=== PATIENT | female | born 1955 | race Caucasian/White ===

== ENCOUNTER 2016-08-14 05:55 | Inpatient (IN) | payer MEDICARE, OTHER ==
--- OUTSIDE RECORDS SUMMARY | 2016-08-14 05:59 | XMS REPORT | Continuity of Care Document ---
:1955 Author Organization [facility] ([facility]) Address [address] [place] [address] Phone [phone] Care Team Providers Name Role Phone Jalen Fiore Primary Care Provider [phone] Source Comments This disclosure is being made pursuant to the Care Everywhere program, applicable federal and state laws, and may not contain all informaitonavailable regarding this patient.[facility] ([facility]) Active Allergies and Adverse Reactions Allergen Noted Date Severity Reactions Comments No Known Allergies 10/20/2008 Current Medications Prescription Sig. Disp. Refills Start Date End Date Status FLUoxetine (PROZAC) take 20 mg by mouth Active 20 mg capsule daily. risperidone take 1 mg by mouth 2 Active (RISPERDAL) 1 mg times daily. tablet warfarin (COUMADIN) 4 Take 6 mg by mouth Active mg tablet daily. furosemide (LASIX) 40 take 20 mg by mouth Active mg tablet daily. estrogens, conjugated take 0.3 mg by mouth Active (PREMARIN) 0.3 mg daily. tablet diltiazem (CARDIZEM take 180 mg by mouth Active CD) 180 mg ER capsule daily. buPROPion (WELLBUTRIN take 150 mg by mouth Active XL) 150 mg extended daily. release tablet pioglitazone (ACTOS) Take 15 mg by mouth Active 15 mg tablet daily. gabapentin 300 mg Take 300 mg by mouth 3 Active tablet times daily. potassium chloride Take 20 mEq by mouth 2 Active (KLOR-CON) 20 mEq times daily. packet isosorbide Take 30 mg by mouth Active mononitrate (IMDUR) Every morning. 30 mg CR tablet insulin glargine inject subcutaneously Active (LANTUS) 100 unit/mL at bedtime. cartridge travoprost (TRAVATAN 1 Drop daily. Active Z) 0.004 % ophthalmic solution digoxin 250 mcg Take 250 mcg by mouth Active tablet daily. donepezil 5 mg tablet Take 5 mg by mouth at Active bedtime. polyethylene glycol Take 17 g by mouth Active 3350 (MIRALAX) 17 daily as needed. gram packet magnesium hydroxide Take 30 mL by mouth Active (MILK OF MAGNESIA) 80 daily as needed. mg/mL suspension sitaGLIPtin (JANUVIA) Take 100 mg by mouth Active 100 mg tablet daily. EXENATIDE (BYETTA SC) inject subcutaneously. Active glimepiride 4 mg Take 4 mg by mouth Active tablet Every morning. brimonidine 0.15 % 1 Drop 3 times daily. Active ophthalmic solution lisinopril 10 mg Take 10 mg by mouth Active tablet daily. HYDROCODONE Take by mouth. Active BIT/ACETAMINOPHEN (LORTAB PO) Active Problems Not on file Social History Tobacco Use Types Packs/Day Years Used Date Former Smoker Smokeless Tobacco: Never Used Last Filed Vital Signs Vital Sign Reading Time Taken Blood Pressure 120/70 04/09/2012 2:26 PM CDT Pulse 72 04/09/2012 2:26 PM CDT Temperature 36.6 C (97.9 F) 09/10/2009 9:29 AM CDT Respiratory Rate 16 04/09/2012 2:26 PM CDT Height 1.6 m (5' 3") 04/09/2012 2:26 PM CDT Weight 95.255 kg (210 lb) 04/09/2012 2:26 PM CDT Body Mass Index 37.21 04/09/2012 2:26 PM CDT Oxygen Saturation - - Plan of Care Health Maintenance Due Date Last Done Comments HCV Screening 1955 Hepatitis B Vaccine (1 of 3 - Primary Series) 1955 Tdap Vaccine 01/07/1964 Lipid Disorder Screening 1971 Td Vaccine 1971 Cervical Cancer Screening 1983 Mammogram 1993 Colonoscopy 2003 Zoster Vaccine 2013 HCC Annual Coding Paraplegia 06/25/2015 Influenza Vaccine: Seasonal (#1) 01/24/2016 Results from Last 3 Months Not on file
[2016-08-14] MEDS ORDERED: MORPHINE SULFATE 30 MG TABLET.SA PO PRN (06:00)
[2016-08-14] MEDS ORDERED: ROPIVACAINE HCL/PF 100 MG, KETOROLAC TROMETHAMINE 30 MG, EPINEPHrine 0.2 MG in NORMAL S... IJ PRN (06:00)
[2016-08-14] MEDS ORDERED: RINGERS SOLUTION,LACTATED 1,000 ML IV PRN (06:00)
[2016-08-14] MEDS ORDERED: TRANEXAMIC ACID 1,000 MG in NORMAL SALINE 100 ML IV PRN (06:00)
[2016-08-14] MEDS ORDERED: ceFAZolin SODIUM 1 GM VIAL IV PRN (06:00)
[2016-08-14 06:26] LABS: Prothrombin Time (Patient) 11.4 Seconds (9.4-11.4)
[2016-08-14 06:27] LABS: INR 1.1 INR (0.90-1.10)
[2016-08-14] MEDS ORDERED: RINGERS SOLUTION,LACTATED 1,000 ML IV ONE (09:32)
[2016-08-14] MEDS ORDERED: diphenhydrAMINE HCL 50 MG/ML VIAL IV PRN (10:08)
[2016-08-14] MEDS ORDERED: MAGNESIUM HYDROXIDE 30 ML UDC PO PRN (10:08)
[2016-08-14] MEDS ORDERED: MAG HYDROX/ALUMINUM HYD/SIMETH 30 ML UDC PO PRN (10:08)
[2016-08-14] MEDS ORDERED: HYDROmorphone HCL 1 MG/ML DISP.SYRIN IV PRN (10:08)
[2016-08-14] MEDS ORDERED: ONDANSETRON HCL/PF 2 MG/ML VIAL IV PRN (10:08)
[2016-08-14] MEDS ORDERED: ACETAMINOPHEN 500 MG TABLET PO PRN (10:08)
[2016-08-14] MEDS ORDERED: ZOLPIDEM TARTRATE 5 MG TABLET PO PRN (10:08)
[2016-08-14] MEDS ORDERED: PROMETHAZINE HCL 5 MG in DEXTROSE 5 % IN WATER 50 ML IV PRN ×2 (10:08)
[2016-08-14] MEDS ORDERED: HYDROPHILIC OINTMENT 454 APPL JAR TP PRN (10:11)
--- NOTE | 2016-08-14 10:16 | OR ---
Operative Report - Dictated Report Narrative: Date: 08/14/2016 Preoperative diagnosis: Right Knee degenerative joint disease. Postoperative diagnosis: Right Knee degenerative joint disease. Procedure: Right Total knee arthroplasty. Surgeon: Marco A Haji M.D. Sheet Pile Driver Operator: Dami Shultz PA-C Anesthesia: Spinal with regional block and local periarticular joint injection. Complications: None Specimens: Bone for disposal. Estimated blood loss: Minimal. Tourniquet time: 102 Minutes at 350 millimeters of mercury. Retained implants: Depuy Attune size 4 standard right lugged cemented posterior stabilized femoral component. Size 4 fixed-bearing cemented tibial platform. 4 by 6 millimeter posterior stabilized cross-linked tibial insert. 35 millimeter medialized patella button. Indications: Mrs. Martines is a 61-year-old female who has had long-standing knee pain. This patient was followed in my clinic for period of time with significant complaints of right knee pain consistent with arthritic changes. They had failed conservative measures including, but not limited to, activity modification, passage of time, medications, and other conservative measures. Patient wished to proceed with surgical treatment. The risks, benefits, and alternatives were discussed in clinic. The risks of , blood clots, bleeding, infection, nerve/tendon blood vessel/ injury, malposition of components, intraoperative fracture, postoperative limited range of motion, persistent pain, failure of components, and need for additional procedures. Patient wished to proceed consent was obtained after answering all questions. Procedure: After marking the correct extremity on the floor, the patient was taken to the operating room. A timeout was performed. IV antibiotics consisting of Ancef were administered prior to the procedure. A regional followed by spinal anesthetic was induced by anesthesia on the operative table with all bony prominences well-padded. Dumont catheter was placed, and a bump was placed under the operative side buttock. SCDs and CARMENCITA hose were utilized on the nonoperative leg. A well-padded tourniquet was applied to the operative thigh. The operative leg was then pre-scrubbed with shawn rai prepped, and draped in a standard sterile fashion. After exsanguinating the extremity with an Esmarch bandage, the tourniquet was inflated. After marking out the anterior knee for standard incision centered over the patella, the skin was incised and dissected down to the joint retinaculum. The joint retinaculum was marked out as well as the horizontal axis of the patella, and a standard medial parapatellar arthrotomy was then made. The most proximal aspect of the quadriceps tendon and the patella tendon insertion were protected from release. A partial synovectomy was performed as well as a resection of the infrapatellar fat pad. The distal femoral fat pad proximal to the trochlea was also resected using cautery. The soft tissues were elevated off the medial aspect of the proximal tibia using a Bundy elevator ensuring that we did not transect the medial collateral ligament. Upon initial evaluation range of motion was approximately 10 degrees to 100 degrees of flexion. There were signs of advanced arthrosis in the medial, lateral, and patellofemoral joint spaces. There were large marginal osteophytes which were removed with a rongeur. The knee was hyperflexed and the patella was tucked laterally. Protecting the surrounding soft tissues with Homans, an entry drill was placed down the femoral canal using Whitesides line for guidance into the entry point. The intramedullary femoral alignment rylee was utilized in order to cut the distal femur in 5 degrees of valgus resecting 10 millimeters of bone. Next the distal femur was sized to a size 4. A posterior referencing guide was utilized to place the distal femoral cutting block in 3 degrees of external rotation. This was pinned into place. The rotation was confirmed both visually and based on anatomic landmarks. The 4 in 1 cutting jig of the appropriate size was utilized in order to make all bony cuts. The angle wing was used to ensure no notching. Retractors were utilized in order to protect surrounding soft tissues. This cut did not result in any excessive notching. We then cut the box centered over the distal femur. This allowed for resection of the anterior and posterior cruciate ligaments. I then turned my attention to the preparation of the tibia. Using an extra medullary tibial alignment rylee, 6 millimeters of bone was resected off the medial articular surface. This was made perpendicular to the mechanical axis of the joint with the alignment rylee centered over the ankle mortise. The alignment rylee was checked and was noted to be parallel to the mechanical axis, centered over the medial one third of the tibial tubercle, paralleling the anterior surface of the tibia. We then turned our attention to the remaining meniscus and soft tissues. These were removed while protecting the surrounding ligaments and soft tissues. The marginal osteophytes off the anterior, posterior, medial, lateral aspects of the femur and tibia were removed. The tibia was sized out to a size 4. Next the tibia was drilled and punched in an externally rotated position. Next the trial femur and a series of tibial inserts were utilized in order to allow for full extension and maximal flexion. It was found that a 6 millimeter insert gave the best range of motion and stability at multiple flexion points as well as at full extension there was less than 2 mm of gapping both medially and laterally. There is minimal anterior translation with the knee at 90 degrees of flexion and no signs of being able to dislocate the knee. The patella was then prepared. The initial thickness was 21 millimeters. This was reamed down to 13 millimeters parallel to the anterior surface of the patella. It was sized out to a size 35 medialized patella button. This was then drilled and trialed. Without any medial restraint the patella tracked appropriately and did not sublux or dislocate. At this point, it was felt these were the appropriate sized implants, and all trials were removed. The standard periarticular joint injection consisting of ropivacaine, Toradol, and epinephrine were injected into the periarticular joint tissues. The bony surfaces were thoroughly irrigated with a pulsatile- suction saline irrigation device. A bone plug from the prior resected anterior chamfer cut was placed into the drill hole at the distal femur. The bony surfaces were then dried in preparation for placement of the implants. The cement was vacuum mixed per the chlorine plant operator's instructions. The cement was placed on the dry bony surfaces and posterior aspect of the implants. The implants were impacted into place, removing all extruded cement. At this point anesthesia administered tranexamic acid per protocol intravenously. The knee was placed in extension with axial loading with the trial insert while the cement cured. Once the cement cured, all remaining extruded cement was removed. The knee was placed through a range of motion with the trial insert to ensure appropriate range of motion and stability. Final range of motion was approximately 0 to 110 degrees. The knee was again thoroughly irrigated with pulsatile saline lavage. The final polyethylene insert was then impacted into place ensuring no retained soft tissues. The remaining periarticular joint injection was injected. A medium Hemovac drain was placed exiting superior laterally. The knee was then placed over a triangle and the arthrotomy was closed with interrupted #1 Vicryl after thoroughly irrigating the joint. The deep and subcutaneous tissues were closed with interrupted oh and 3-0 Vicryl respectively. Skin was closed with a running subcutaneous 3-0 Monocryl and david. Xeroform, 4 x 4's, ABD, Sof-Rol, and a full leg Nicholas wrap were applied. All sponge, needle, blade, and instrument counts were correct prior to closing the wounds. Postoperative condition: The patient was awoken and transferred to the postanesthesia care unit in stable condition. Plan is to be admitted to the inpatient medical/surgical floor postoperatively for 24 hours of IV antibiotics , physical therapy, occupational therapy, and medical comanagement. Patient will be weightbearing as tolerated with range of motion as tolerated. DVT prophylaxis will be with SCDs, CARMENCITA hose, and pharmacological anticoagulation. Anticipated hospital stay is approximately 2-4 days.
[2016-08-14] MEDS: ceFAZolin SODIUM 1 GM in DEXTROSE 5 % IN WATER 100 ML IV SCH ×6 (11:14→23:45)
[2016-08-14] MEDS: KETOROLAC TROMETHAMINE 15 MG/ML VIAL IV SCH ×3 (11:14→23:45)
[2016-08-14] MEDS: RINGERS SOLUTION,LACTATED 1,000 ML IV PRN ×2 (15:12→23:40)
[2016-08-14] MEDS ORDERED: WARFARIN SODIUM 5 MG TABLET PO SCH (17:00)
[2016-08-14] MEDS: oxyCODONE HCL/ACETAMINOPHEN 1 TAB TABLET PO PRN (17:38)
[2016-08-14] MEDS: MORPHINE SULFATE 15 MG TABLET.SA PO SCH (21:08)
[2016-08-14] MEDS: FAMOTIDINE 20 MG TABLET PO SCH (21:08)
[2016-08-14] MEDS: SIMVASTATIN 10 MG TABLET PO SCH (21:08)
[2016-08-14] MEDS: SENNOSIDES/DOCUSATE SODIUM 1 TAB TABLET PO SCH (21:08)
[2016-08-15] MEDS: KETOROLAC TROMETHAMINE 15 MG/ML VIAL IV SCH ×4 (04:38→22:18)
[2016-08-15 06:45] LABS: Hematocrit 31.9 % (37.0-47.0); Mean Cell Volume 87.4 fl (78-100); Mean Corpuscular Hemoglobin 27.4 pg (27-31); Mean Corpuscular Hgb Conc 31.3 g/dl (32-36); Mean Platelet Volume 11.3 fl (6.0-9.5); Platelet Count 145 K/mm3 (150-450); Red Blood Count 3.65 M/mm3 (4.2-5.4); Red Cell Distribution Width 14.7 % (11.5-14.0); White Blood Count 9.1 K/mm3 (4.0-10.5)
[2016-08-15 06:53] LABS: Prothrombin Time (Patient) 11.4 Seconds (9.4-11.4)
[2016-08-15 06:54] LABS: INR 1.1 INR (0.90-1.10)
[2016-08-15 07:00] LABS: Anion Gap 13.7 mmol/L (6.8-13.8); BUN/Creatinine Ratio 20.6 (9.0-21.6); Calcium * 8.7 mg/dL (7.9-10.9); Carbon Dioxide 21.9 mmol/L (24-32.6); Estimated Creat Clear 36.4; Potassium 4.6 mmol/L (3.4-4.6)
--- NOTE | 2016-08-15 08:08 | PN ---
Subjective - Date and Time Seen Date: 08/15/16 Time: 08:04 Subjective Narrative: Patient reports she feels good. Feels she did well getting up to the chair for breakfast. Pain controlled. No nausea. No lightheadedness. NO SOB or CP. Objective Objective Narrative: Up in chair. Bandages C/D/I. N/V intact RLE. Calves supple. 5/5 PF/DF ankles. - Vitals Vitals: Last Vital Signs Temp 36.4 C L 08/15/16 06:36 Pulse 82 08/15/16 06:36 Resp 18 08/15/16 06:36 BP 131/72 08/15/16 06:36 Pulse Ox 100 08/15/16 06:36 - Abnormal Lab Findings Abnormal Lab Findings: Abnormal Lab Results 08/15/16 08/15/16 Range/Units 06:37 06:37 RBC 3.65 L (4.2-5.4) M/mm3 Hgb 10.0 L (12.5-16.0) gm/dL Hct 31.9 L (37.0-47.0) % MCHC 31.3 L (32-36) g/dl RDW 14.7 H (11.5-14.0) % Plt Count 145 L (150-450) K/mm3 MPV 11.3 H (6.0-9.5) fl Carbon Dioxide 21.9 L (24-32.6) mmol/L BUN 27 H D (3-23) mg/dL Est GFR (Non-Af Amer) 44 L D (60-130) mL/min Random Glucose 144 H (70-110) mg/dL Cauti Physician Documentation - Urinary Catheter Management Wilson Date of Insertion: 08/14/16 Time of Insertion: 08:10 Assessment/Plan - Problems/Diagnosis (1) Acute blood loss anemia Problem: Acute Narrative: asymptmoatic recheck labs tomorrow am (2) Diabetes Problem: Acute (3) Hypertension Problem: Acute (4) Hyperlipidemia Problem: Acute (5) Atrial fibrillation Problem: Acute (6) History of DVT (deep vein thrombosis) Problem: Acute Narrative: anticoagulation (7) Total knee replacement status Problem: Acute Narrative: PT, wilson and drain out today, anticoagulation, pain control
[2016-08-15] MEDS: MORPHINE SULFATE 15 MG TABLET.SA PO SCH ×2 (08:14→22:19)
[2016-08-15] MEDS: OXYBUTYNIN CHLORIDE 5 MG TABLET PO SCH ×2 (08:14→22:19)
[2016-08-15] MEDS: risperiDONE 1 MG TABLET PO SCH (08:14)
[2016-08-15] MEDS: LISINOPRIL 20 MG TABLET PO SCH (08:15)
[2016-08-15] MEDS: sitaGLIPtin PHOSPHATE 50 MG TABLET PO SCH (08:15)
[2016-08-15] MEDS: FUROSEMIDE 20 MG TABLET PO SCH (08:15)
[2016-08-15] MEDS: METOPROLOL TARTRATE 25 MG TABLET PO SCH (08:16)
[2016-08-15] MEDS: FAMOTIDINE 20 MG TABLET PO SCH ×2 (08:16→22:19)
[2016-08-15] MEDS: ISOSORBIDE MONONITRATE 60 MG TAB.SR.24H PO SCH (08:17)
[2016-08-15] MEDS: POTASSIUM CHLORIDE 20 MEQ TABLET.SA PO SCH (08:18)
[2016-08-15] MEDS: lamoTRIgine 100 MG TABLET PO SCH (08:18)
[2016-08-15] MEDS: POLYETHYLENE GLYCOL 3350 119 GM BTL PO SCH (08:19)
[2016-08-15] MEDS: Insulin Glargine,Hum.Rec.Anlog [Toujeo Solostar] SQ SCH (08:20)
[2016-08-15] MEDS: ENOXAPARIN SODIUM 40 MG/0.4 ML SYRG SC SCH (08:25)
[2016-08-15] MEDS: oxyCODONE HCL/ACETAMINOPHEN 1 TAB TABLET PO PRN (11:27)
[2016-08-15] MEDS ORDERED: WARFARIN SODIUM PO SCH ×2 (17:00)
[2016-08-15] MEDS ORDERED: WARFARIN SODIUM 2 MG TABLET PO SCH (17:00)
[2016-08-15] MEDS: SIMVASTATIN 10 MG TABLET PO SCH (22:19)
[2016-08-15] MEDS: SENNOSIDES/DOCUSATE SODIUM 1 TAB TABLET PO SCH (22:19)
[2016-08-16] MEDS: KETOROLAC TROMETHAMINE 15 MG/ML VIAL IV SCH (04:32)
[2016-08-16] MEDS: oxyCODONE HCL/ACETAMINOPHEN 1 TAB TABLET PO PRN ×3 (05:33→14:15)
[2016-08-16 06:33] LABS: Hematocrit 29.9 % (37.0-47.0); Hemoglobin 9.7 gm/dL (12.5-16.0); Mean Cell Volume 84.7 fl (78-100); Mean Corpuscular Hemoglobin 27.5 pg (27-31); Mean Corpuscular Hgb Conc 32.4 g/dl (32-36); Mean Platelet Volume 9.7 fl (6.0-9.5); Platelet Count 137 K/mm3 (150-450); Red Blood Count 3.53 M/mm3 (4.2-5.4); Red Cell Distribution Width 14.6 % (11.5-14.0); White Blood Count 8.6 K/mm3 (4.0-10.5)
[2016-08-16 06:41] LABS: Anion Gap 12.5 mmol/L (6.8-13.8); BUN/Creatinine Ratio 21.7 (9.0-21.6); Carbon Dioxide 26.3 mmol/L (24-32.6); Estimated Creat Clear 41.4; Potassium 4.8 mmol/L (3.4-4.6)
[2016-08-16 06:42] LABS: Prothrombin Time (Patient) 11.4 Seconds (9.4-11.4)
[2016-08-16 06:52] LABS: INR 1.1 INR (0.90-1.10)
--- NOTE | 2016-08-16 07:49 | PN ---
Subjective - Date and Time Seen Date: 08/16/16 Time: 07:46 Subjective Narrative: Subjective: Reports no concerns. She states that she was doing well therapy however she had a buckling episode but did not fall. Was able to walk in the halls with therapy. Pain is well-controlled. Voiding without any complications. Tolerating by mouth intake. Denies any nausea or vomiting. Denies calf pain. Slept well. Physical exam: Alert and oriented to person, place and time Right lower Extremity: Palpable dorsalis pedis pulse. Sensation grossly intact to light touch. Dressings clean and dry. Able to flex and extend ankle and toes. No excessive drainage. Calf and thigh are soft and nontender. Assessment: Postop day 2 status post right total knee arthroplasty. Plan: Continue with physical and occupational therapy weightbearing as tolerated. Continue with anticoagulation. Pain control with goal to rely on oral medications. Continue bowel regimen. Will need 6 weeks with walker or assitive device to protect joint while ambulating during the recovery process. Discharge planning - plan for nursing facility tomorrow Objective - Vitals Vitals: Last Vital Signs Temp 36.6 C 08/16/16 06:35 Pulse 80 08/16/16 06:35 Resp 18 08/16/16 06:35 BP 134/68 08/16/16 06:35 Pulse Ox 94 08/16/16 06:35 - Abnormal Lab Findings Abnormal Lab Findings: Abnormal Lab Results 08/16/16 08/16/16 Range/Units 06:30 06:30 RBC 3.53 L (4.2-5.4) M/mm3 Hgb 9.7 L (12.5-16.0) gm/dL Hct 29.9 L (37.0-47.0) % RDW 14.6 H (11.5-14.0) % Plt Count 137 L (150-450) K/mm3 MPV 9.7 H (6.0-9.5) fl Potassium 4.8 H (3.4-4.6) mmol/L BUN 25 H (3-23) mg/dL Est GFR (Non-Af Amer) 51 L (60-130) mL/min BUN/Creatinine Ratio 21.7 H (9.0-21.6) Cauti Physician Documentation - Urinary Catheter Management Dumont Date of Insertion: 02/20/17 Time of Insertion: 08:10 Assessment/Plan - Problems/Diagnosis (1) Acute blood loss anemia Problem: Acute (2) Atrial fibrillation Problem: Chronic (3) Diabetes Problem: Chronic Qualifiers: Diabetes mellitus type: type 2 (4) History of DVT (deep vein thrombosis) Problem: Chronic (5) Hyperlipidemia Problem: Chronic (6) Hypertension Problem: Chronic (7) Total knee replacement status Problem: Acute Qualifiers: Laterality: right Qualified Code(s): Z96.651 - Presence of right artificial knee joint
[2016-08-16] MEDS: POLYETHYLENE GLYCOL 3350 119 GM BTL PO SCH (09:39)
[2016-08-16] MEDS: lamoTRIgine 100 MG TABLET PO SCH (09:39)
[2016-08-16] MEDS: POTASSIUM CHLORIDE 20 MEQ TABLET.SA PO SCH (09:39)
[2016-08-16] MEDS: OXYBUTYNIN CHLORIDE 5 MG TABLET PO SCH ×2 (09:40→20:45)
[2016-08-16] MEDS: sitaGLIPtin PHOSPHATE 50 MG TABLET PO SCH (09:41)
[2016-08-16] MEDS: FAMOTIDINE 20 MG TABLET PO SCH ×2 (09:41→20:45)
[2016-08-16] MEDS: risperiDONE 1 MG TABLET PO SCH (09:41)
[2016-08-16] MEDS: ENOXAPARIN SODIUM 40 MG/0.4 ML SYRG SC SCH (09:41)
[2016-08-16] MEDS: MORPHINE SULFATE 15 MG TABLET.SA PO SCH ×2 (09:45→20:45)
[2016-08-16] MEDS: ISOSORBIDE MONONITRATE 60 MG TAB.SR.24H PO SCH (09:47)
[2016-08-16] MEDS: METOPROLOL TARTRATE 25 MG TABLET PO SCH (09:48)
[2016-08-16] MEDS: FUROSEMIDE 20 MG TABLET PO SCH (09:51)
[2016-08-16] MEDS: LISINOPRIL 20 MG TABLET PO SCH (09:51)
[2016-08-16] MEDS: Insulin Glargine,Hum.Rec.Anlog [Toujeo Solostar] SQ SCH (09:53)
[2016-08-16] MEDS ORDERED: WARFARIN SODIUM 10 MG TABLET PO ONE (17:00)
[2016-08-16] MEDS: SENNOSIDES/DOCUSATE SODIUM 1 TAB TABLET PO SCH (20:45)
[2016-08-16] MEDS: SIMVASTATIN 10 MG TABLET PO SCH (20:45)
[2016-08-17 06:18] LABS: Prothrombin Time (Patient) 11.6 Seconds (9.4-11.4)
[2016-08-17 06:25] LABS: INR 1.12 INR (0.90-1.10)
[2016-08-17 06:44] VITALS: BP 135/74
[2016-08-17] MEDS: oxyCODONE HCL/ACETAMINOPHEN 1 TAB TABLET PO PRN (07:29)
--- NOTE | 2016-08-17 08:00 | DS ---
(1) Acute blood loss anemia Problem: Acute (2) Atrial fibrillation Problem: Chronic (3) Diabetes Problem: Chronic Qualifiers: Diabetes mellitus type: type 2 (4) History of DVT (deep vein thrombosis) Problem: Chronic (5) Hyperlipidemia Problem: Chronic (6) Hypertension Problem: Chronic (7) Total knee replacement status Problem: Acute Qualifiers: Laterality: right Qualified Code(s): Z96.651 - Presence of right artificial knee joint Description of Stay: Mrs. Martines was admitted to the floor after undergoing right total knee arthroplasty. Tolerated this well. Was admitted to the floor postoperatively for 24 hours of IV antibiotics, pain control, medical comanagement, and occupational and physical therapy. OT and PT were consulted to assist with activities of daily living and ambulation. Was made weightbearing as tolerated with range of motion as tolerated. Pain was initially controlled with IV regimen. This was transitioned to oral once tolerating a by mouth intake. Was resumed on home diet and medications. Had a Dumont catheter inserted and the operating room which was discontinued on postoperative day 1. A drain was placed intraoperatively into the knee which was discontinued on postoperative day 1. Lovenox SCD and CARMENCITA hose were utilized for DVT prophylaxis. Vital signs remained stable to the hospital course. Serial labs were obtained which showed a final hemoglobin of 9.7 grams. BMP was reviewed and was stable. Physical examination throughout the hospital course showed an extremity that had sensation that was intact to light touch, palpable pulses, a benign wound, motor intact to the toes, ankle, and knee. Knee range of motion was approximately 0 degrees to 70 degrees. Once an oral pain regimen was tolerated and she was slow to progress with therapy and secondary to her home needs it was felt that she would benefit from continued therapy at a nursing facility. Instructions: Continue with weightbearing as tolerated and range of motion as tolerated. Keep the wound clean and dry. Cover with dry gauze and tape. Change every 2-3 days as needed. Cover wound while showering. Continue with physical therapy. Resume home diet. Report any fever over 101.5 Fahrenheit, uncontrolled pain, increased drainage, foul odor of drainage, new or increased calf pain or shortness of breath, or any other significant complaints. Continue with CARMENCTIA hose on the operative extremity until instructed otherwise. No driving until instructed otherwise. Follow up in approximately 10-14 days. Procedures Performed: see notes below List Procedures: Right total knee arthroplasty Discharge Disposition: [facility] Disposition: [facility] Condition: Good Discharge Activity: Activity as tolerated, Weight bearing Discharge Diet: Consistent carbs Alf Therapy: Physicial Therapy Referrals: Farzana Mccurdy DO [Primary Care Provider] - Additional Patient Instructions (free text): [facility] at discharge for SNF therapies Repeat INR on Monday 08/21 and fax to [facility] in Pharmacy. Prescriptions (Any new or edited meds): Enoxaparin Sodium [Lovenox] 40 mg SC Q24H #5 disp.syrin Morphine Sulfate [Ms Contin] 15 mg PO Q12H #20 tablet.sa oxyCODONE HCL/ACETAMINOPHEN [Percocet 5 MG/325 MG] 2 tab PO Q4H PRN #90 tablet PRN Reason: Moderate Pain Complete Home Medications List: Complete Home Medication List: Pravastatin Sodium [Pravachol] 20 mg PO DAILY 10/16/12 Oxybutynin Chloride [Ditropan Xl] 5 mg PO DAILY 07/27/14 Potassium Chloride [Klor-Con M20] 20 meq PO DAILY 01/21/15 Metoprolol Tartrate [Lopressor] 25 mg PO DAILY 02/22/15 Polyethylene Glycol 3350 [Miralax] 17 gm PO DAILY 02/22/15 Furosemide [Lasix] 20 mg PO DAILY 04/11/16 Isosorbide Mononitrate [Imdur] 60 mg PO DAILY 04/11/16 Lamotrigine [Lamictal] 150 mg PO DAILY 04/11/16 Lisinopril [Zestril] 20 mg PO DAILY 07/27/16 Ranitidine HCl [Zantac] 150 mg PO BID 07/27/16 Risperidone [Risperdal] 2 mg PO DAILY 07/27/16 Warfarin Sodium [Coumadin] 6.5 mg PO DAILY 07/27/16 metFORMIN HCL [Glucophage] 1,000 mg PO BIDWM 07/27/16 sitaGLIPtin PHOSPHATE [Januvia] 50 mg PO DAILY 07/27/16 Aspirin 81 mg PO DAILY 08/14/16 Emollient Combination No.97 [Aquaphilic] 1 appl TP DAILY PRN 08/14/16 Insulin Glargine,Hum.rec.anlog [Zahra Cooper] 80 unit SQ QAM 08/14/16 Enoxaparin Sodium [Lovenox] 40 mg SC Q24H #5 disp.syrin 08/17/16 Morphine Sulfate [Ms Contin] 15 mg PO Q12H #20 tablet.sa 08/17/16 Sennosides/Docusate Sodium [Senokot-S] 2 tab PO HS #0 tablet 08/17/16 Warfarin Sodium [Coumadin] 6.5 mg PO DAILY@1700 tablet 08/17/16 Warfarin Sodium [Coumadin] 6.5 mg PO DAILY@1700 tablet 08/17/16 oxyCODONE HCL/ACETAMINOPHEN [Percocet 5 MG/325 MG] 2 tab PO Q4H PRN #90 tablet 08/17/16
[2016-08-17] MEDS: risperiDONE 1 MG TABLET PO SCH (09:17)
[2016-08-17] MEDS: FAMOTIDINE 20 MG TABLET PO SCH (09:17)
[2016-08-17] MEDS: OXYBUTYNIN CHLORIDE 5 MG TABLET PO SCH (09:17)
[2016-08-17] MEDS: lamoTRIgine 100 MG TABLET PO SCH (09:17)
[2016-08-17] MEDS: sitaGLIPtin PHOSPHATE 50 MG TABLET PO SCH (09:17)
[2016-08-17] MEDS: METOPROLOL TARTRATE 25 MG TABLET PO SCH (09:18)
[2016-08-17] MEDS: FUROSEMIDE 20 MG TABLET PO SCH (09:18)
[2016-08-17] MEDS: ISOSORBIDE MONONITRATE 60 MG TAB.SR.24H PO SCH (09:18)
[2016-08-17] MEDS: POTASSIUM CHLORIDE 20 MEQ TABLET.SA PO SCH (09:19)
[2016-08-17] MEDS: LISINOPRIL 20 MG TABLET PO SCH (09:19)
[2016-08-17] MEDS: Insulin Glargine,Hum.Rec.Anlog [Toujeo Solostar] SQ SCH (09:19)
[2016-08-17] MEDS: ENOXAPARIN SODIUM 40 MG/0.4 ML SYRG SC SCH (09:19)
[2016-08-17] MEDS: MORPHINE SULFATE 15 MG TABLET.SA PO SCH (09:22)
[2016-08-17] MEDS: POLYETHYLENE GLYCOL 3350 119 GM BTL PO SCH (09:23)
[2016-08-17] MEDS ORDERED: WARFARIN SODIUM PO SCH ×2 (17:00)
== END 2016-08-17 11:45 | DRG 470 ==
LOC: MS 05:55
PROVIDERS: ADMIT Orthopaedic Surgery; ATTEND Orthopaedic Surgery
PROC: 0SRC0J9 Replacement of Right Knee Joint with Synthetic Substitute, Cemented, Open Approach (ICD-10-PCS; principal; 2016-08-14 08:00)
DX: M17.0 Bilateral primary osteoarthritis of knee (principal); D62 Acute posthemorrhagic anemia; I48.2 Chronic atrial fibrillation; E11.9 Type 2 diabetes mellitus without complications; I10 Essential (primary) hypertension; E78.5 Hyperlipidemia, unspecified; Z79.4 Long term (current) use of insulin; Z79.82 Long term (current) use of aspirin; Z79.01 Long term (current) use of anticoagulants

== ENCOUNTER 2016-12-29 10:55 | Day surgery (SDC) | payer MEDICARE, OTHER ==
[~2016-12-29 10:55] MED LIST: ACETAMINOPHEN 500 MG TABLET PO PRN; HYDROmorphone HCL 2 MG/ML VIAL IV PRN; MAG HYDROX/ALUMINUM HYD/SIMETH 30 ML UDC PO PRN; MAGNESIUM HYDROXIDE 30 ML UDC PO PRN; ONDANSETRON HCL/PF 2 MG/ML VIAL IV PRN; PROMETHAZINE HCL 25 MG in DEXTROSE 5 % IN WATER 50 ML IV PRN; RINGERS SOLUTION,LACTATED 1,000 ML IV PRN; ROPIVACAINE HCL/PF 40 MG in NORMAL SALINE 16 ML IJ PRN; ZOLPIDEM TARTRATE 5 MG TABLET PO PRN; ceFAZolin SODIUM 1 GM VIAL IV PRN; diphenhydrAMINE HCL 50 MG/ML VIAL IV PRN
[2016-12-29] MEDS ORDERED: ceFAZolin SODIUM 1 GM VIAL IV ONE (11:50)
--- NOTE | 2016-12-29 12:29 | OR ---
Operative Report - Dictated Report Narrative: Date: 12/29/2016 Physician: Marco A Haji M.D. 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 Martines Is a 61 year-old female who has been followed in my clinic with complaints of knee pain consistent with suspected hypertrophic scar tissue between her patella and femoral components status post total knee arthroplasty. Physical exam and diagnostic imaging were consistent with these complaints and concern for patellofemoral pathology. Conservative measures have failed including, but not limited to, passage of time, activity modification, medications, and injections. The risks, benefits, and alternatives were discussed in clinic. The risks being , bleeding, infection, blood clots, nerve, tendon, ligament, blood vessel injury, persistent pain, arthrosis, need for additional procedures, and persistent symptoms. Consent was obtained in the clinic. Procedure: After marking the correct extremity in the preoperative holding area, a timeout was performed in the operating room. IV antibiotics consisting of Ancef were administered prior to the procedure. A well-padded tourniquet was applied to the operative upper thigh. The leg was prepped and draped in a standard sterile fashion. 0.5% Marcaine with epinephrine was infused into the projected portal sites as well as the intra-articular space. A arturo incision was made for inferior lateral portal. A blunt trocar and cannula was introduced into the knee. The suprapatellar pouch revealed no loose bodies. There was hypertrophic scar tissue from the superior aspect of the patella button which impinged between the femur trochlea component and patella button. The remaining knee was evaluated and there do not show any signs of polyethylene wear, and other surrounding hypertrophic tissue. The femoral component showed no signs of wear. The patella was evaluated for hypermobility and did not appear to be hypermobile and either the medial or lateral direction. With flexion there did not appear to be any excessive lateral subluxation and based on preoperative discussion a lateral release was not performed. Utilizing a superior lateral portal and a shaver the hypertrophic scar tissue was excised off the distal quadriceps tendon as it inserted on the patella button. This resulted in a resolution of the grinding and the impingement of the soft tissues. At this point the remaining knee was evaluated and thoroughly irrigated and evacuated of its fluid. Once it was felt that we adequately addressed the pathology, the knee was thoroughly irrigated. The fluid was evacuated ensuring that we have removed all meniscal, chondral, and any other loose bodies. A final evaluation of the joint showed no additional pathology. The fluid was then evacuated of the knee, and the trocar and camera were removed from the joint. The wounds were closed with interrupted nylon after placing 20 mL of 0.2% ropivacaine into the joint. Dressings consisting of Xeroform, 4 x 4, ABD, soft roll, and an Nicholas were applied. All sponge, needle, blade, and instrument counts were correct prior to closing the wounds. The patient was awoken and transferred to the postanesthesia care unit in stable condition.
[2016-12-29] MEDS: oxyCODONE HCL/ACETAMINOPHEN 1 TAB TABLET PO PRN ×2 (13:18→13:45)
[2016-12-29 15:14] VITALS: BP 133/91
[2016-12-29] MEDS ORDERED: SENNOSIDES/DOCUSATE SODIUM 1 TAB TABLET PO SCH (21:00)
== END 2016-12-29 10:56 | disposition home or self-care (01) ==
LOC: AMB 10:55
PROVIDERS: ATTEND Orthopaedic Surgery
PROC: 0SNC4ZZ Release Right Knee Joint, Percutaneous Endoscopic Approach (ICD-10-PCS; principal; 2016-12-29 11:55)
DX: M96.89 Other intraoperative and postprocedural complications and disorders of the musculoskeletal system (principal); L91.0 Hypertrophic scar; I10 Essential (primary) hypertension; E11.9 Type 2 diabetes mellitus without complications; I48.91 Unspecified atrial fibrillation; E78.5 Hyperlipidemia, unspecified; Z87.891 Personal history of nicotine dependence; Z68.41 Body mass index [BMI] 40.0-44.9, adult